=== PATIENT | male | born 1960 | race African-American/Black ===

== ENCOUNTER 2020-11-07 00:18 | Emergency (ER) | payer SELFPAY ==
[~2020-11-07] VITALS: Ht 175.3 cm; Wt 65.0 kg
[2020-11-07 00:54] VITALS: BP 11/78
[2020-11-07] MEDS ORDERED: ACETAMINOPHEN WITH CODEINE 300/30MG TABLET PO ONE (01:00)
[2020-11-07] MEDS ORDERED: IBUP-2029 MT (01:50)
[2020-11-07] MEDS ORDERED: T3 PO (01:50)
== END 2020-11-07 02:38 | disposition home or self-care (01) ==
LOC: ER 00:18
DX: M79.672 Pain in left foot (principal); F17.290 Nicotine dependence, other tobacco product, uncomplicated; F12.10 Cannabis abuse, uncomplicated
CPT/HCPCS: 29515; 73630; 99283

== ENCOUNTER 2021-03-03 16:33 | Emergency (ER) | payer OTHER, MEDICAID ==
[~2021-03-03] VITALS: Ht 172.7 cm; Wt 77.0 kg
[~2021-03-03 16:33] MED LIST: IBUP-2029 MT; T3 PO
[2021-03-03 16:49] VITALS: BP 90/59
[2021-03-03] MEDS ORDERED: KETOROLAC 30MG/ML VIAL IV STA (18:21)
[2021-03-03] MEDS ORDERED: IBUP-2028 MT (18:29)
[2021-03-03] MEDS ORDERED: SODIUM CHLORIDE 0.9% 1,000 ML IV ONE (18:30)
[2021-03-03 19:13] LABS: BASOPHILS % 0.5 % (0.0-2.0); EOSINOPHILS % 1.1 % (0.0-5.0); HEMATOCRIT. 38.9 % (42.0-52.0); HEMOGLOBIN. 12.7 g/dL (14.0-18.0); LYMPHOCYTES % 8.8 % (20.0-50.0); MEAN CORPUSCULAR VOLUME 91.6 fL (80.0-94.0); MEAN PLATELET VOLUME 9.2 fl (7.4-10.4); MONOCYTES % 10.5 % (2.0-8.0); NEUTROPHILS % 79.1 % (40.0-76.0); PLATELET 164 x1000/uL (130-400); RED BLOOD CELL COUNT 4.24 mill/uL (4.7-6.1); RED CELL DISTRIBUTION WIDTH 13.4 % (11.6-14.6)
[2021-03-03 19:15] LABS: CLARITY URINE CLEAR (CLEAR); COLOR URINE YELLOW (YELLOW); KETONES URINE TRACE (NEGATIVE); LEUKOCYTE ESTERASE URINE NEGATIVE (NEGATIVE); NITRITE URINE NEGATIVE (NEGATIVE); OCCULT BLOOD URINE NEGATIVE (NEGATIVE); PROTEIN URINE NEGATIVE (NEGATIVE); SPECIFIC GRAVITY URINE 1.026 (1.005-1.030); UROBILINOGEN URINE 0.2 E.U./dL (0.2-1.0)
[2021-03-03 19:21] LABS: CHLORIDE 110 mEq/L (98-107)
[2021-03-03 19:35] LABS: CREATINE KINASE 182 IU/L (39-308)
[2021-03-03] MEDS ORDERED: CYCL10TA7 MT (19:53)
[2021-03-03] MEDS ORDERED: CYCLOBENZAPRINE 10MG TABLET PO ONE (20:00)
== END 2021-03-03 20:44 | disposition home or self-care (01) ==
LOC: ER 16:51
DX: M54.5 Low back pain (principal); M79.604 Pain in right leg; I10 Essential (primary) hypertension; F12.10 Cannabis abuse, uncomplicated
CPT/HCPCS: 36415; 72100; 80053; 81003; 82550; 83735; 85025; 93970; 96361; 96374; 99285; J1885; J7030

== ENCOUNTER 2022-04-23 04:30 | Emergency (ER) | payer MEDICAID, OTHER ==
[~2022-04-23] VITALS: Ht 177.8 cm; Wt 75.0 kg
[~2022-04-23 04:30] MED LIST changes: +CYCL10TA21 MT; +IBUP-2028 MT
[2022-04-23 04:39] VITALS: BP 116/81
== END 2022-04-23 07:32 | disposition home or self-care (01) ==
LOC: ER 04:30
DX: K62.89 Other specified diseases of anus and rectum (principal); F12.10 Cannabis abuse, uncomplicated
CPT/HCPCS: 99281